=== PATIENT | female | born 1990 | race African-American/Black ===

== ENCOUNTER 2017-05-31 23:30 | Emergency (ER) | payer MEDICAID ==
[~2017-05-31 23:30] MED LIST: PREN1CAP7 PO; ZANT150T2 PO
--- NOTE | 2017-06-01 00:20 | PD ---
HPI Chief Complaint Contractions Date Seen: Jun 01, 2017 Time Seen: 00:15 Travel History International Travel<30 Days: No Contact w/Intl Traveler<30Days: No Known Affected Area: No History of Present Illness HPI 27-year-old 3 para 2 at 39+ weeks gestation who reports onset of contractions 2 hours ago. She denies bleeding or leakage of fluid. She reports that she was 2 cm dilated in the clinic at her last visit. She reports good movement. [facility] Weeks Gestation: 39 Para: 2 : 3 History Past Medical History Medical History: Denies Significant Hx Obstetric History Obstetric History 2 prior vaginal deliveries, uncomplicated pregnancies Current , complicated by third trimester urinary tract infection Past Surgical History Surgical History: No Previous Surgery Family History Family History: Negative Social History Alcohol Use: No Tobacco Use: No Substance Abuse: No Allergies-Medications (Allergen,Severity, Reaction): Coded Allergies: No Known Allergies (Verified , 05/29/17) Home Meds Active Scripts Ranitidine (Zantac) 150 Mg Tab, 150 MG PO BID for Reduce Stomach Acid, #60 TAB 3 Refills Prov:Belen Ponce 05/29/17 W/O Vit A W/ Fe Fumar (Citranatal [place]) 27-1-260 Mg Cap, 1 CAP PO DAILY for Nutritional Supplement, #30 CAP 11 Refills Prov:Belen Ponce 01/29/17 Review of Systems Except as stated in HPI: all other systems reviewed are Neg Physical Exam Narrative GENERAL: Well-nourished, well-developed patient. SKIN: Warm and dry. HEAD: Normocephalic and atraumatic. EYES: No scleral icterus. No injection or drainage. ENT: No nasal drainage noted. Mucous membranes pink. Airway patent. NECK: Supple, trachea midline. No JVD. CARDIOVASCULAR: Regular rate and rhythm without murmurs, gallops, or rubs. RESPIRATORY: Breath sounds equal bilaterally. No accessory muscle use. ABDOMEN/GI: Abdomen soft, non-tender, bowel sounds present, no rebound, no guarding Gravid to [-] weeks size Fundal Height: [-38] GENITOURINARY: External Genitalia: intact and normal in appearance BUS glands: [-] Cervix: [-] Dilatation: [-2] Effacement: [90-] Station: [-2-] Presentation: [-vtx] Membranes: [intact] Uterine Contractions: [irreg-] FHT's: Category: [-] Baseline: [-140] Reactive: [-yes] Variability: [mod-] Decels: [x1-] EXTREMITIES: No cyanosis or edema. BACK: Nontender without obvious deformity. No CVA tenderness. NEUROLOGICAL: Awake and alert. Motor and sensory grossly within normal limits. Five out of 5 muscle strength in all muscle groups. Normal speech. Data Data Vital Signs Reviewed: Yes Group B Strep: Negative MDM Medical Record Reviewed: Yes Narrative Course / MDM Assessment: 27-year-old multipara at 39+ weeks gestation with contractions without cervical change Plan: Labor precautions Diagnosis Diagnosis: Primary Impression: 39 weeks gestation of Additional Impression: Irregular contractions Disposition: 01 DISCHARGE HOME Condition: Good Milan Griffin MD Jun 01, 2017 00:20
[2017-06-02] MEDS ORDERED: SENN1TAB PO (09:48)
[2017-06-02] MEDS ORDERED: IBUP-232 PO (09:48)
== END 2017-06-01 03:53 | disposition home or self-care (01) ==
LOC: HOBED 23:30
DX: O47.1 False labor at or after 37 completed weeks of gestation (principal); Z3A.39 39 weeks gestation of pregnancy
CPT/HCPCS: 59025

== ENCOUNTER 2017-06-01 05:16 | Inpatient (IN) | payer MEDICAID ==
[2017-06-01] VITALS (12 sets, daily range): BP systolic 105–138; BP diastolic 53–87; PULSE 65–82; RESP 16–18; TEMP 97.7–98.1
[2017-06-01] MEDS ORDERED: OXYTOCIN 30 UNITS-500ML PREMIX 500 ML ONE (05:49)
[2017-06-01] MEDS ORDERED: LIDOCAINE HCL 1% 50 ML VIAL ONE (05:49)
[2017-06-01] MEDS ORDERED: LACTATED RINGER'S 1000 ML INJ 1,000 ML IV PRN (06:24)
[2017-06-01] MEDS ORDERED: LACTATED RINGER'S 1000 ML INJ 1,000 ML IV SCH (06:24)
--- NOTE | 2017-06-01 06:26 | PD ---
HPI Chief Complaint Contractions Date Seen: Jun 01, 2017 (Allegra Chung MD, R3) Travel History International Travel<30 Days: No Contact w/Intl Traveler<30Days: No Known Affected Area: No (Allegra Chung MD, R3) History of Present Illness HPI Patient is a 27 year old at 38-5/7 weeks gestation who presents today for contractions. Patient was evaluated in our ED around midnight with contractions and found to be 2 cm dilated and not making cervical change. She returns this morning with contractions every 1-2 minutes. No gush or leaking of fluid. Positive movement. (Allegra Chung MD, R3) History Past Medical History Medical History: Denies Significant Hx (Allegra Chung MD, R3) Obstetric History Obstetric History x 2 (Allegra Chung MD, R3) Past Surgical History Surgical History: No Previous Surgery (Allegra Chung MD, R3) Family History Family History: Negative (Allegra Chung MD, R3) Social History Alcohol Use: No Tobacco Use: No Substance Abuse: No (Allegra Chung MD, R3) Allergies-Medications (Allergen,Severity, Reaction): Coded Allergies: No Known Allergies (Verified , 05/29/17) Home Meds Active Scripts Ranitidine (Zantac) 150 Mg Tab, 150 MG PO BID for Reduce Stomach Acid, #60 TAB 3 Refills Prov:Belen Ponce 05/29/17 W/O Vit A W/ Fe Fumar (Citranatal [place]) 27-1-260 Mg Cap, 1 CAP PO DAILY for Nutritional Supplement, #30 CAP 11 Refills Prov:Belen Ponce 01/29/17 Review of Systems Except as stated in HPI: all other systems reviewed are Neg General / Constitutional: No: Fever, Chills Eyes: No: Blurred Vision, Visual changes HENT: No: Headaches Cardiovascular: No: Chest Pain or Discomfort Respiratory: No: Cough, Short of Breath Gastrointestinal: Abdominal Pain Genitourinary: Pelvic Pain, No: Dysuria, Discharge, Vaginal Bleeding Musculoskeletal: No: Edema Psychiatric: No: Substance Abuse (Allegra Chung MD, R3) Physical Exam Narrative GENERAL: Well-nourished, well-developed patient. SKIN: Warm and dry. HEAD: Normocephalic and atraumatic. EYES: No scleral icterus. No injection or drainage. ENT: No nasal drainage noted. Mucous membranes pink. Airway patent. NECK: Supple, trachea midline. No JVD. CARDIOVASCULAR: Regular rate and rhythm without murmurs, gallops, or rubs. RESPIRATORY: Breath sounds equal bilaterally. No accessory muscle use. ABDOMEN/GI: Abdomen soft, non-tender, bowel sounds present, no rebound, no guarding Gravid to 38 weeks size GENITOURINARY: External Genitalia: intact and normal in appearance BUS glands: normal Cervix: midposition Dilatation: 9-10 Effacement: 100 Station: -2 Presentation: vertex Membranes: intact Uterine Contractions: q1-2min FHT's: Category: I Baseline: 145 Reactive: + Variability: moderate Decels: none EXTREMITIES: No cyanosis or edema. BACK: Nontender without obvious deformity. No CVA tenderness. NEUROLOGICAL: Awake and alert. Motor and sensory grossly within normal limits. Normal speech. (Allegra Chung MD, R3) Data Data Vital Signs Reviewed: Yes Orders Orders Ob (2e) Additional Admit Info (06/01/17 05:37) Oxytocin 30 Units-500ml Premix (Pitocin (06/01/17 05:49) Lidocaine 1% Inj (50 Ml) (Xylocaine 1% I (06/01/17 05:49) Admit To Inpatient (06/01/17 ) Code Status (06/01/17 06:24) Vital Signs (Adult) .Per protocol (06/01/17 06:24) Activity Oob Ad Yi (06/01/17 06:24) Heart (06/01/17 06:24) Amnioinfusion (06/01/17 06:24) Urinary Catheter Management .ONCE (06/01/17 06:24) Lactated Ringer's 1000 Ml Inj (Lr 1000 M (06/01/17 06:24) Lactated Ringer's 1000 Ml Inj (Lr 1000 M (06/01/17 06:24) Sodium Chlorid 0.9% 500 Ml Inj (Ns 500 M (06/01/17 06:30) Sodium Chlor 0.9% 1000 Ml Inj (Ns 1000 M (06/01/17 06:44) Lidocaine 1% Inj (50 Ml) (Xylocaine 1% I (06/01/17 06:30) Citric Acid-Sodium Citrate Liq (Bicitra (06/01/17 06:30) Ondansetron Inj (Zofran Inj) (06/01/17 06:30) Fentanyl Inj (Fentanyl Inj) (06/01/17 06:30) Fentanyl Inj (Fentanyl Inj) (06/01/17 06:30) Complete Blood Count With Diff (06/01/17 06:24) Hold Clot (06/01/17 06:24) Abo/Rh Blood Type (06/01/17 06:24) Urinalysis - C+S If Indicated (06/01/17 06:24) Resp Oxygen Non Rebreathe Mask (06/01/17 ) ^ Epidural / Intrathecal Infus (06/01/17 06:24) Oxytocin 30 Units-500ml Premix (Pitocin (06/01/17 06:30) Lidocaine 1% Inj (50 Ml) (Xylocaine 1% I (06/01/17 06:30) Light Mineral Oil (Muri-Lube Oil) (06/01/17 06:30) Inpatient Certification (06/01/17 ) Specimen To Be Collected PRN (06/01/17 06:24) Group B Strep: Negative (Allegra Chung MD, R3) MDM Medical Record Reviewed: Yes Narrative Course / MDM 27 year old at 38-5/7 weeks gestation. 1. IUP- Category I tracing, reassuring. 2. Labor- Admit for labor 3. GBS negative dw Dr. Griffin (Allegra Chung MD, R3) Attending Attestation Patient seen and evaluated with resident under direct supervision, agree with assessment and plan. (Milan Griffin MD) Allegra Chung MD, R3 Jun 01, 2017 06:26 Milan Griffin MD Jun 01, 2017 07:22
--- NOTE | 2017-06-01 06:28 | PD.OB.DELI ---
Weeks gestation: 38 Gest age assessed date: Jun 01, 2017 Gest age assessed time: 05:30 Pt started active labor?: Yes Active labor start date: Jun 01, 2017 Medical induction of labor?: No Artificial rupture of membrane: Yes Artificial ROM date: Jun 01, 2017 Artifical ROM time: 05:48 Anesthesia: None Episiotomy: None Vaginal Delivery: Normal, Spontaneous Presentation: Occiput posterior Nuchal Cord: x1 Delayed cord clamping (45 sec): Yes : Female Delivery date: Jun 01, 2017 Delivery time: 06:18 One Minute : 9 Five Minute : 9 Weight: 2995g Placenta: Spontaneous delivery, Intact, 3 vessel cord Laceration: No lacerations Estimated blood loss: 100cc Additional Information Supervised by Dr. Griffin (Allegra Chung MD, R3) Additional Information Patient seen and evaluated with resident under direct supervision, agree with assessment and plan. (Milan Griffin MD) Allegra Chung MD, R3 Jun 01, 2017 06:28 Milan Griffin MD Jun 01, 2017 07:24
[2017-06-01] MEDS ORDERED: CITRIC ACID-SODIUM CITRATE LIQ 30 ML UDC PO SCH (06:30)
[2017-06-01] MEDS ORDERED: MINERAL OIL 10 ML VIAL TOPICAL PRN (06:30)
[2017-06-01] MEDS ORDERED: LIDOCAINE HCL 1% 50 ML VIAL INFIL PRN (06:30)
[2017-06-01] MEDS ORDERED: ONDANSETRON HCL 4 MG/2 ML VIAL IV PRN (06:30)
[2017-06-01] MEDS ORDERED: OXYTOCIN 30 UNITS-500ML PREMIX 500 ML IV ONE (06:30)
[2017-06-01] MEDS ORDERED: SODIUM CHLORID 0.9% 500 ML INJ 500 ML IV PRN (06:30)
[2017-06-01] MEDS ORDERED: LIDOCAINE HCL 1% 50 ML VIAL I-DERMAL PRN (06:30)
[2017-06-01] MEDS ORDERED: SODIUM CHLOR 0.9% 1000 ML INJ 1,000 ML IV PRN (06:44)
[2017-06-01] MEDS ORDERED: oxyCODONE/ACETAMINOPHEN 5 MG/325 MG TAB PO PRN (06:45)
[2017-06-01] MEDS ORDERED: ACETAMINOPHEN 325 MG TAB PO PRN (06:45)
[2017-06-01] MEDS ORDERED: ZOLPIDEM TARTRATE 5 MG TAB PO PRN (06:45)
[2017-06-01] MEDS ORDERED: DOCUSATE SODIUM 50 MG/SENNA 8.6 MG TAB PO PRN (06:45)
[2017-06-01] MEDS ORDERED: WITCH HAZEL 50%/GLYCERIN 12.5% 40 PAD JAR TOPICAL PRN (06:45)
[2017-06-01] MEDS ORDERED: ALUMINUM/MAGNESIUM/SIMETH 30 ML CUP PO PRN (06:45)
[2017-06-01] MEDS ORDERED: BENZOCAINE 20% TOPICAL SPRAY 60 ML CAN TOPICAL PRN (06:45)
[2017-06-01] MEDS ORDERED: ONDANSETRON ODT 4 MG TAB PO PRN (06:45)
[2017-06-01] MEDS ORDERED: OXYTOCIN 30 UNITS-500ML PREMIX 500 ML IV SCH (06:45)
[2017-06-01] MEDS ORDERED: SODIUM CHLORIDE 0.9% FLUSH 10 ML FLUSH IV FLUSH PRN (06:45)
[2017-06-01] MEDS: IBUPROFEN 600 MG TAB PO PRN ×2 (07:03→14:04)
[2017-06-01 07:10] LABS: AUTOMATED NEUTROPHIL # 6.9 TH/MM3 (1.8-7.7); BASOPHIL % 0.4 % (0.0-2.0); EOSINOPHIL % 0.5 % (0.0-4.0); HEMATOCRIT 43.7 % (35.0-46.0); HEMO FLAGS DIFF FINAL; LYMPH % 15.7 % (9.0-44.0); LYMPHOCYTE # 1.4 TH/MM3 (1.0-4.8); MEAN CELL VOLUME 85.5 FL (80.0-100.0); MEAN CORPUSCULAR HGB CONC 32.8 % (32.0-36.0); MONO % 6.5 % (0.0-8.0); NEUT % 76.9 % (16.0-70.0); PLATELET COUNT 194 TH/MM3 (150-450); RED BLOOD COUNT 5.11 MIL/MM3 (4.00-5.30); RED CELL DISTRIBUTION WIDTH 12.9 % (11.6-17.2)
[2017-06-01] MEDS ORDERED: SODIUM CHLORIDE 0.9% FLUSH 10 ML FLUSH IV FLUSH SCH (09:00)
[2017-06-01] MEDS ORDERED: DIPHTH/TETANUS/ACEL PERTUSSIS (BOOSTER) 0.5 ML VIAL/PFS IM ONE (16:00)
[2017-06-01] MEDS ORDERED: MEASLES, MUMPS, RUBELLA VACCINE 0.5 ML VIAL SQ ONE (16:00)
[2017-06-01] MEDS: oxyCODONE/ACETAMINOPHEN 5 MG/325 MG TAB PO PRN (18:26)
[2017-06-02] MEDS: oxyCODONE/ACETAMINOPHEN 5 MG/325 MG TAB PO PRN ×2 (00:25→08:47)
[2017-06-02] MEDS: IBUPROFEN 600 MG TAB PO PRN ×2 (00:25→08:47)
[2017-06-02 03:20] VITALS: BP 92/47; PULSE 74; RESP 18; TEMP 98.1
[2017-06-02 07:35] VITALS: BP 95/60; PULSE 61; RESP 18; TEMP 97.8
--- NOTE | 2017-06-02 08:44 | HHI.OB ---
Subjective Post Day: 1 Remarks PPD #1. AFVSS overnight. Decreased lochia. Denies dysuria. She is feeding her baby via breast and formula. No breast tenderness. She states her pain is well controlled. Appetite is good without N/V. Positive flatus. Ambulating well without issues. Denies calf pain or shortness of breath. She is otherwise doing well without complaints. (Eric North MD R2) Objective Vitals/I&O Vital Signs Date Time Temp Pulse Resp B/P (MAP) Pulse Ox O2 Delivery O2 Flow Rate FiO2 06/02/17 03:20 98.1 74 18 92/47 (62) 06/01/17 19:36 97.7 71 105/61 (76) 06/01/17 08:50 98.1 65 16 119/53 (75) Objective Remarks GENERAL: Well-nourished, well-developed patient. CARDIOVASCULAR: Regular rate and rhythm without murmurs, gallops, or rubs. RESPIRATORY: Breath sounds equal bilaterally. No accessory muscle use. ABDOMEN/GI: Abdomen soft, non-tender. Fundus: Firm, non-tender at umbilicus. GENITOURINARY: Light to moderate bleeding. EXTREMITIES: No cyanosis or edema, non-tender, without signs of DVT. Medications and IVs Current Medications Medications (Trade) Dose Ordered Sig/Dieter Route Start Time Stop Time Status Last Admin (NS Flush) 2 ml BID IV FLUSH 06/01/17 09:00 (NS Flush) 2 ml UNSCH PRN IV FLUSH 06/01/17 06:45 (Tylenol) 650 mg Q4H PRN PO 06/01/17 06:45 (Motrin) 600 mg Q6H PRN PO 06/01/17 06:45 06/02/17 00:25 (Percocet 5-325 Mg) 1 tab Q4H PRN PO 06/01/17 06:45 06/02/17 00:25 (Percocet 5-325 Mg) 2 tab Q4H PRN PO 06/01/17 06:45 (Americaine 20% Top Spr) 1 spray Q4H PRN TOPICAL 06/01/17 06:45 (Tucks Pads) 1 applic QID PRN TOPICAL 06/01/17 06:45 (Carissa-Colace) 2 tab Q12H PRN PO 06/01/17 06:45 (Ambien) 5 mg HS PRN PO 06/01/17 06:45 (Mag-Al Plus Susp Liq) 15 ml Q8H PRN PO 06/01/17 06:45 (Zofran Odt) 4 mg Q6H PRN PO 06/01/17 06:45 (Eric North MD R2) Assessment/Plan Problem List: (1) care following vaginal delivery ICD Codes: Z39.2 - Encounter for routine follow-up Assessment and Plan 27 year old female who is PPD#1 s/p . -Continue routine care. -Percocet and Motrin PRN pain. Advised Motrin prn pain upon discharge -Encouraged OOB. Advised pelvic rest for 6 wks. -Re: ctrl, she desires Depo IM prior to discharge -Anticipate discharge today with f/u advised with OB provider (Eric North MD R2) Attending Attestation PPD #1 s/p Doing well. d/c home today. PP precautions reviewed Patient seen and examined, D/w Dr. North (Janelle Gonzalez MD) Eric North MD R2 Jun 02, 2017 08:44 Janelle Gonzalez MD Jun 02, 2017 08:59
[2017-06-02] MEDS ORDERED: SENN1TAB PO (09:48)
[2017-06-02] MEDS ORDERED: IBUP-232 PO (09:48)
--- NOTE | 2017-06-02 09:52 | HHI.DCPOC ---
Discharge Care Plan Diagnosis: (1) care following vaginal delivery Goals to Promote Your Health * To prevent worsening of your condition and complications, follow up with your OB provider within 6 weeks after hospital discharge. Directions to Meet Your Goals Take your medications as prescribed Follow your dietary instruction Follow activity as directed Keep your appointments as scheduled Take your immunizations and boosters as scheduled If your symptoms worsen call your PCP, if no PCP go to Urgent Care Center or Emergency Room Smoking is Dangerous to Your Health. Avoid second hand smoke Call the 24-hour hour crisis hotline for domestic abuse at Eric North MD R2 Jun 02, 2017 09:52
[2017-06-02] MEDS ORDERED: medroxyPROGESTERone ACETATE SUSP 150 MG/ML SYRINGE IM ONE (10:00)
== END 2017-06-02 16:15 | disposition home or self-care (01) | DRG 775 ==
LOC: HOBED 05:16 → H2EA 05:37 → H1EA 07:54
PROVIDERS: ADMIT Obstetrics & Gynecology; ATTEND Obstetrics & Gynecology
PROC: 10E0XZZ Delivery of Products of Conception, External Approach (ICD-10-PCS; principal; 2017-06-01)
PROC: 00HU33Z Insertion of Infusion Device into Spinal Canal, Percutaneous Approach (ICD-10-PCS; 2017-06-01)
PROC: 3E0R3CZ (ICD-10-PCS; 2017-06-01)
DX: O69.81X0 Labor and delivery complicated by cord around neck, without compression, not applicable or unspecified (principal); Z37.0 Single live birth; Z3A.38 38 weeks gestation of pregnancy
CPT/HCPCS: 59025; 85025; 90715; 96360; J1050; J2590